=== PATIENT | female | born 2000 | race Caucasian/White ===

== ENCOUNTER 2020-01-02 14:29 | Emergency (ER) | payer BC, SELFPAY ==
[2020-01-02 14:40] VITALS: BP 118/73; PULSE 88; RESP 20; TEMP 37.1; O2SAT 100
[2020-01-02 14:41] VITALS: BP 118/73; PULSE 88; RESP 20; TEMP 37.1; O2SAT 100
--- NOTE | 2020-01-02 14:41 | ED.GENADULT ---
HPI - General Adult General Chief complaint: Upper Respiratory Infection Stated complaint: sore throat Time Seen by Provider: 01/02/20 14:41 Source: patient and RN notes reviewed Mode of arrival: ambulatory Limitations: no limitations History of Present Illness HPI narrative: 19-year-old female presents with complaints of sore throat with swelling and white patches for 1 day. No treatment. No high fevers, drooling, neck or throat swelling. Pain is bilateral. Hurts to swallow. Exacerbation factors consist of eating and drinking. No rhinorrhea or nasal congestion. No voice change. No nausea, vomiting, or abdominal pain. Tolerating liquids well. Denies chills, dyspnea, difficulty swallowing, jaw pain, dental pain, facial pain, foreign body sensation, and rash. LMP 2 weeks ago. Remains active. The patient reports she have not been diagnosed with COVID-19. NEGATIVE COVID-19 test at [facility] (Jessica's employer) prior to arrival to [facility] today. The patient reports she is not waiting for the results of a COVID-19 lab test. The patient reports she do not have fever, chills, weakness, or fatigue. The patient reports she do not have a new or worsening cough or shortness of breath. Denies chest pain. The patient reports she do not have any rhinorrhea, congestion, loss of taste, and diarrhea. Denies recent traveling. Denies concerns for COVID-19 or exposures been home with limited outdoor exposure except for essential household needs, work, and return home. At this time, patient is not suspected of having COVID-19. Some parts of this dictation were generated by voice recognition software and may contain typographical and/or grammatical inaccuracies. Related Data Allergies Allergy/AdvReac Type Severity Reaction Status Date / Time No Known Allergies Allergy Verified 01/02/20 14:41 Review of Systems Review of Systems: Narrative: CONSTITUTIONAL: Denies fever, chills, sweats. EYES: Denies visual changes, redness, discharge. ENT: Denies rhinorrhea, congestion, otalgia. Complains of sore throat with swelling and white patches. CARDIOVASCULAR: Denies chest pain, palpitations, edema. RESPIRATORY: Denies dyspnea, wheezing, cough. GASTROINTESTINAL: Denies abdominal pain, nausea, vomiting, diarrhea. GENITOURINARY: Denies dysuria, hematuria, abnormal discharge. SKIN: Denies rash or itching. MUSCULOSKELETAL: Denies acute back pain, joint pain, or myalgia. NEUROLOGIC: Denies numbness or focal weakness. PSYCHIATRIC: Denies anxiety or depression. All systems reviewed & are unremarkable except as noted in HPI and below. [facility] Past Medical History Medical History (Updated 01/02/20 @ 15:30 by ASHER Winston) Kidney stones Surgical History Surgical History (Updated 01/02/20 @ 15:30 by ASHER Winston) History of lithotripsy Family History Family History (Updated 01/02/20 @ 15:31 by ASHER Winston) Father Unknown family medical history Mother , Due to a house fire Unknown family medical history Social History Social History (Updated 01/02/20 @ 15:37 by ASHER Winston) Smoking status: Former smoker Tobacco type: cigarettes Second hand tobacco smoke exposure: No Alcohol intake: current Substance use: former Substance use type: marijuana Living arrangements: with family Occupation/Education: occupation Additional occupation/education comments: works at [employer] Gender identity (if verbalized by the patient): Female Sexual Orientation (if Verbalized by the Patient): Straight or Heterosexual Comments At time of signature, agree with nurse past medical, surgical, social, and family history. There is no relevant family history pertinent to the presenting complaint. Exam Narrative: Exam Narrative: GENERAL: This is a well-nourished, well-developed patient, in no apparent distress. Speaks in full sen
== END 2020-01-02 15:02 | disposition home or self-care (01) ==
PROVIDERS: Emergency Provider Nurse Practitioner Family
DX: J02.9 Acute pharyngitis, unspecified (principal); Z87.891 Personal history of nicotine dependence
CPT/HCPCS: 87081; 87804; 87880; 99213; G0463

== ENCOUNTER 2020-06-14 08:36 | Emergency (ER) | payer BC, SELFPAY ==
--- NOTE | 2020-06-14 08:46 | ED.URI ---
HPI - URI/Sore Throat General Chief Complaint: Upper Respiratory Infection Stated Complaint: swollen tonsils/fever/sore throat Time Seen by Provider: 06/14/20 09:00 Source: patient and RN notes reviewed Mode of arrival: ambulatory Limitations: no limitations History of Present Illness HPI Narrative: 20 year old female who presents to [facility] care with complaints of enlarged tonsils with painful swallowing for the past 1 week with increase in her symptoms in the past 24 hours. Patient reports tactile fever with chills and sweats and has noted some post nasal drainage this morning. Patient states that throat is sore with swallowing aggravating her symptoms. Patiet denies any cough, no shortness of breath, or any facial pressure or ear pain. Patient states history of enlarged tonsils with sore throat. MD elicited complaint: fever (tactile), sore throat and other (chils and sweats,post nasal drainage) Pertinent past history: other (history of enlarged tonsils with sore throats) Onset (ago): week(s) (1) Consistency: progressively worsening Severity: moderate Pain scale (0-10): 6 Description of mucous: clear Able to tolerate fluids by mouth: Yes Exacerbating factors: swallowing Relieving factors: nothing Associated symptoms: fever (tactile), chills, sore throat and other (post nasal drainage) Treatments prior to arrival: acetaminophen Related Data Home Medications Medication Instructions Recorded Confirmed norelgestromin-ethin.estradiol 1 patch TOPICAL DAILY 06/14/20 06/14/20 [Xulane] Allergies Allergy/AdvReac Type Severity Reaction Status Date / Time No Known Allergies Allergy Verified 06/14/20 08:51 Review of Systems Review of Systems: Narrative: CONSTITUTIONAL: reports possible fever,with chills, or sweats. EYES: Denies visual changes, redness, or discharge. ENT: Denies rhinorrhea, congestion,positive for sore throat, no otalgia, positive post nasal drainage CARDIOVASCULAR: Denies chest pain, palpitations, or edema. RESPIRATORY: Denies cough or dyspnea. GASTROINTESTINAL: Denies abdominal pain, nausea, vomiting, or diarrhea. GENITOURINARY: Denies dysuria or hematuria. SKIN: Denies rash or itching. MUSCULOSKELETAL: Denies back pain, joint pain, or myalgia. NEUROLOGIC: Denies headache, numbness, or weakness. PSYCHIATRIC: positive for history of anxiety no depression. All systems reviewed & are unremarkable except as noted in HPI and below PMFSH Past Medical History Medical History (Updated 06/14/20 @ 09:08 by Josefina Stock NP) Kidney stones Tonsillitis Surgical History Surgical History History of lithotripsy Family History Family History (Updated 06/14/20 @ 09:05 by Josefina Stock NP) Father No problems noted. Mother , Due to a house fire No problems noted. Grandparent Diabetes mellitus Hypertension Social History Social History (Updated 06/14/20 @ 09:06 by Josefina Stock NP) Smoking status: Former smoker Tobacco type: e-cigarettes/vaping Second hand tobacco smoke exposure: No Alcohol intake: current Alcohol use details: social Substance use: former Substance use type: marijuana Living arrangements: with roommate(s) Additional occupation/education comments: works at [employer] living Gender identity (if verbalized by the patient): Female Comments At time of signature, agree with nursing past medical, surgical, social and family history. There is no relevant family history pertinent to the presenting complaint Exam Narrative: Exam Narrative: GENERAL: Well-appearing, well-nourished, and in no acute distress. HEAD: Normocephalic, atraumatic. EYES: PERRLA and EOMI. ENT: Nares clear, no rhinorrhea or epistaxis. Mucous membranes moist.TM's normal with good light reflex, throat red with tonsils red and acutely enlarged with no lesions or exudates noted, post nasal drainage noted
[2020-06-14 08:47] VITALS: BP 121/71; PULSE 117; RESP 16; TEMP 37.1; O2SAT 98
[2020-06-14 08:52] VITALS: BP 121/71; PULSE 117; RESP 16; TEMP 37.1; O2SAT 98
== END 2020-06-14 09:16 | disposition home or self-care (01) ==
PROVIDERS: Emergency Provider Registered Nurse
DX: J03.90 Acute tonsillitis, unspecified (principal)
CPT/HCPCS: 87081; 87880; 99213; G0463

== ENCOUNTER 2020-08-13 22:34 | Emergency (ER) | payer BC, SELFPAY ==
--- NOTE | ~2020-08-13 | XR_ITS ---
EXAMINATION: XR chest 2V DATE: 08/13/2020 23:24 INDICATION: Chest tightness TECHNIQUE: PA and lateral views of the chest are obtained. COMPARISON: None available FINDINGS: The lungs are free of acute opacities. There is no pleural effusion or pneumothorax. The ca rdiomediastinal silhouette is normal. The visualized bones and soft tissues are unremarkable. IMPRESSION: 1. No acute cardiopulmonary abnormality. Reviewed, dictated and finalized at location A.
[2020-08-13 22:56] VITALS: BP 123/78; PULSE 97; RESP 16; TEMP 36.1; O2SAT 100
--- NOTE | 2020-08-13 23:01 | ECG_ITS ---
Measurements Intervals [place] Rate: 72 P: 50 GA: 144 QRS: 78 QRSD: 86 T: 57 QT: 376 QTc: 413 Interpretive Statements SINUS RHYTHM WITH MARKED SINUS ARRHYTHMIA RSR' IN V1 OR V2, CONSIDER RIGHT VENTRICULAR HYPERTROPHY OR RIGHT VCD BORDERLINE ECG Electronically Signed On 08-14-2020 5:52:25 CDT by Malik Olea D.O.
[2020-08-13 23:21] LABS: Basophils Percent Auto 0.2 % (0.2-1.2); Eosinophils Percent Auto 0.5 % (0-4.4); Hematocrit 35.9 % (37.0-47.0); Immature Granulocyte Absolute 0.01 K/mm3 (0.00-0.031); Immature Granulocyte Percent A 0.1 % (0-0.5); Lymphocytes Absolute Auto 3.21 K/mm3 (0.9-3.2); Lymphocytes Percent Auto 39.2 % (18.3-44.2); Mean Corpuscular HGB Conc 33.4 g/dl (32-36); Mean Corpuscular Hemoglobin 30.5 pg (26-34); Mean Corpuscular Volume 91.1 fl (80-100); Mean Platelet Volume 10.1 fl (7.4-10.4); Monocytes Absolute Auto 0.5 K/mm3 (0.1-0.6); Monocytes Percent Auto 6.4 % (2.6-8.5); Neutrophils Absolute Auto 4.4 K/mm3 (1.3-6.7); Neutrophils Percent Auto 53.6 % (45.5-73.1); Platelet Count Result 296 k/mm3 (150-375); Red Blood Count 3.94 M/mm3 (4.2-5.4); Red Cell Distribution Width 11.9 % (11.5-14.5); White Blood Count 8.2 K/mm3 (4.5-10.0)
[2020-08-13 23:37] LABS: Anion Gap 7 mmol/L (8-16); Blood Urea Nitrogen 12 mg/dL (7-17); Calcium 9.6 mg/dL (8.4-10.2); Carbon Dioxide 25 mmol/L (22-30); Chloride 105 mmol/L (98-107); Estimated CRCL calculation 109 ml/min; Estimated Glomerular Filt Rate > 60; Glucose 88 mg/dL (65-105); Potassium 3.5 mmol/L (3.4-5.0); Sodium 137 mmol/L (137-145)
--- NOTE | 2020-08-14 00:51 | ED.SOB ---
HPI - SOB/Dyspnea General Chief Complaint: Shortness of Breath/Dyspnea Stated Complaint: chest tightness Time Seen by Provider: 08/14/20 00:26 History of Present Illness HPI Narrative: Constant, sharp, substernal chest pain since yesterday. No radiation. 5/10 in severity. Worse with breathing. Associated with mild SOB. No cough, fever, nausea, vomiting. Related Data Home Medications Medication Instructions Recorded Confirmed norelgestromin-ethin.estradiol 1 patch TOPICAL DAILY 06/14/20 06/14/20 [Xulane] Allergies Allergy/AdvReac Type Severity Reaction Status Date / Time No Known Allergies Allergy Verified 08/14/20 01:32 Review of Systems Review of Systems: All systems reviewed & are unremarkable except as noted in HPI and below PMFSH Past Medical History Medical History Kidney stones Tonsillitis Surgical History Surgical History History of lithotripsy Family History Family History Father No problems noted. Mother , Due to a house fire No problems noted. Grandparent Diabetes mellitus Hypertension Social History Social History Smoking status: Former smoker Tobacco type: e-cigarettes/vaping Second hand tobacco smoke exposure: No Alcohol intake: current Substance use: former Substance use type: marijuana Additional occupation/education comments: works at [employer] Gender identity (if verbalized by the patient): Female Exam Const: General: healthy appearing, no acute distress and alert Orientation/consciousness: patient oriented x3 HENMT: Head: normal to inspection Neck: Neck: normal visual inspection Chest: Chest palpation & inspection: normal inspection of the chest and no tenderness Resp: Effort & Inspection: normal respiratory effort Auscultation: clear to auscultation bilaterally Cardio: Rate: regular rate Rhythm: regular rhythm GI: GI Palp: Yes Soft to palpation and No Tenderness to palpation present (GI) Skin: General skin exam: normal color Neuro: General: patient oriented x3 and moves all extremities Speech: normal speech Extrem: General: normal to inspection and no edema Psych: Mental Status: mental status grossly normal Affect: normal affect Course Vital Signs Vital signs: Vital Signs Temperature 36.1 C L 08/13/20 22:56 Pulse Rate 97 08/13/20 22:56 Respiratory Rate 16 08/13/20 22:56 Blood Pressure 123/78 08/13/20 22:56 Pulse Oximetry 100 08/13/20 22:56 Temperature 36.1 C L 08/13/20 22:56 Pulse Rate 75 08/14/20 03:02 Respiratory Rate 16 08/14/20 03:02 Blood Pressure 105/88 08/14/20 03:02 Pulse Oximetry 100 08/14/20 03:02 MDM - SOB/Dyspnea MDM Narrative Medical decision making narrative: CXR clear. Labs including d-dimer reassuring. Mild improvement with nebulizer. Could be patsy URI. no definitive etiology identified. Differential Diagnosis Differential diagnosis: Likely community acquired pneumonia, pulmonary embolism and other (bronchitis, pleurisy) Medical Records Attestation: I reviewed the patient's medical records. Lab Data Attestation: I reviewed the patient's lab results. Result diagrams: 08/13/20 23:06 08/13/20 23:07 Labs: Lab Results 08/13/20 08/13/20 08/13/20 Range/Units 23:06 23:06 23:07 WBC 8.2 (4.5-10.0) K/mm3 RBC 3.94 L (4.2-5.4) M/mm3 Hgb 12.0 (12.0-15.0) g/dL Hct 35.9 L (37.0-47.0) % MCV 91.1 (80-100) fl MCH 30.5 (26-34) pg MCHC 33.4 (32-36) g/dl RDW 11.9 (11.5-14.5) % Plt Count 296 (150-375) k/mm3 MPV 10.1 (7.4-10.4) fl Immature Gran % (Auto) 0.1 (0-0.5) % Neut % (Auto) 53.6 (45.5-73.1) % Lymph % (Auto) 39.2 (18.3-
[2020-08-14 00:59] VITALS: PULSE 88; RESP 18
[2020-08-14] MEDS: ALBUTEROL SULFATE NEB 2.5 MG/0.5 ML INH 5 MG INHALATION (01:08)
[2020-08-14 01:10] VITALS: O2SAT 100
[2020-08-14 01:16] VITALS: PULSE 96; RESP 18
[2020-08-14 01:30] VITALS: BP 136/87; PULSE 101; RESP 14; O2SAT 100
[2020-08-14] MEDS: IBUPROFEN 600 MG TABLET PO (01:33)
[2020-08-14 02:01] LABS: D Dimer 0.27 ug/mL (<0.48)
[2020-08-14 03:02] VITALS: BP 105/88; PULSE 75; RESP 16; O2SAT 100
== END 2020-08-14 03:03 | disposition home or self-care (01) ==
PROVIDERS: Emergency Provider Emergency Medicine
DX: R07.81 Pleurodynia (principal); F17.290 Nicotine dependence, other tobacco product, uncomplicated; Z87.442 Personal history of urinary calculi; R94.31 Abnormal electrocardiogram [ECG] [EKG]
CPT/HCPCS: 36415; 71046; 80048; 81025; 85025; 85380; 93005; 94640; 99284; A9270